=== PATIENT | female | born 1940 | race Caucasian/White ===

== ENCOUNTER → 2016-05-26 | Day surgery (SDC) | payer OTHER ==
[~2016-05-26] MED LIST: AMBIEN PO; AMLODIPINE BESYL5 MG PO; ASPIRIN81 M1 PO; ASPIRIN81 M2 PO; BISOPROLOL-HCT1 EAC1 PO; CALCIUM 600 + D1 TAB PO; CRANBERRY TABL1 EACH PO; CRANBERRY400 M1 PO; DAILY VALUE1 EACH PO; FISH OIL 1,0001 CA2 PO; FISH OIL 1,001000 MG PO; FLEXERIL10 MG PO; FOSAMAX70 MG; HYDROCHLOROTHIA25 MG PO; KLONOPIN1 MG PO; KLOR-CON SPRIN10 MEQ; LEXAPRO PO; LEXAPRO20 MG PO; LOTREL 10-20 MG1 CAP PO; MAGNESIUM200 MG PO; MOBIC15 MG PO; MOTRIN600 MG PO; MULTI VITAMIN1 EACH PO; OXYCODONE HCL5 MG PO; PREMPRO 0.1 TAB 0.62 PO; PREMPRO 0.625-21 TAB PO; PRILOSEC40 MG PO; VITAMIN C500 M1 PO; VITAMIN D1000 UNI1 PO; VOLTAREN75 MG PO; ZESTRIL10 M1 PO
--- NOTE | ~2016-05-26 | OR ---
Unit #: [id number] #: [id number] Patient: SHERRIE PATINO [id number] [address] [address] [id number] O MR#: [id number] NAME: SHERRIE PATINO ROOM: Date of Procedure: 05/26/2016 Admission Date: 05/26/2016 Surgeon: Yakov Evans M.D. : 1940 Attending Physician: Yakov Evans M.D. Primary Care Physician: Akash Heart M.D. SURGERY CENTER OPERATIVE NOTE PROCEDURES PERFORMED Lumbar epidural steroid injection under x-ray guided needle placement with provider administered conscious sedation. PREOPERATIVE DIAGNOSES 1. Acute lumbar radiculitis. 2. Chronic lumbar radicular pain. 3. Spinal stenosis, lumbosacral spine. 4. Herniated disk, L5-S1. 5. Herniated disk, L2-3. 6. Degenerative joint disease, lumbosacral spine. 7. Degenerative disk disease, lumbosacral spine. 8. Facet arthrosis, lumbosacral spine. 9. Facet arthralgia, lumbosacral spine. INDICATIONS FOR PROCEDURE The patient presents today with a longstanding history of chronic lumbar radicular as well as lumbar facet arthralgia pain secondary to her underlying degenerative processes. She is generally fairly well treated medically, but does occasionally experience exacerbations, which to date have only responded to interventional pain management procedures. However, during today's discussion, she described an exacerbation which has failed her usual ongoing conservative measures. She states she is getting less relief from interventional pain management procedures. Therefore, we discussed referral to surgeon. Since she states she has already seen Dr. Aniket Murphy and while does not prefer surgery, he understands it might be necessary. We also discussed the potential for referring for medical pain management. However, she states she is comfortably being medically managed by her current primary care provider, Dr. Ford Heart. Following these discussions as well as discussion of risks and benefits of proceeding today with lumbar approach epidural steroid injection utilizing dual needle technique, the patient agreed this would be the appropriate course of action. She is scheduled for long-term followup in this clinic on September 01. DESCRIPTION OF PROCEDURE Ms. Patino was then taken to the operating room, where she was prepped and draped in sterile manner. Standard monitors were applied. She was sedated with 2 mg of IV Versed initially and required additional 2 mg of IV Versed throughout the duration of procedure. Lumbar epidural space accessed at the L5-S1 and the L2-L3 levels using loss of resistance technique and x-ray guidance. Needle placement was confirmed with injection of 2 mL of Omnipaque at each level. There was good inferior and Unit #: [id number] #: [id number] Patient: SHERRIE PATINO superior flow at each level injected. Following this needle placement with a total x-ray time of 9 seconds, the patient received an injectate containing 4 mL of normal saline, and 40 mg of methylprednisolone at each level for a total injected volume of 8 mL of normal saline, and 80 mg of methylprednisolone. She tolerated this procedure well. She was discharged home with followup instructions, which include return date as described above. Dictated by... Jeb Ding/donn TD: 05/27/2016 02:34 JOB #: [id number] SURGERY CENTER OPERATIVE NOTE X Maxwell Evans MD PROCEDURE OPERATIVE NOTE
== END | disposition home or self-care (01) ==
LOC: CCSC 08:14
DX: G89.29 Other chronic pain (principal); M51.16 Intervertebral disc disorders with radiculopathy, lumbar region; M51.17 Intervertebral disc disorders with radiculopathy, lumbosacral region; M48.06 Spinal stenosis, lumbar region; M19.90 Unspecified osteoarthritis, unspecified site; Z90.49 Acquired absence of other specified parts of digestive tract; Z85.038 Personal history of other malignant neoplasm of large intestine; Z98.41 Cataract extraction status, right eye; Z98.42 Cataract extraction status, left eye; Z98.890 Other specified postprocedural states; Z88.1 Allergy status to other antibiotic agents; Z88.8 Allergy status to other drugs, medicaments and biological substances
CPT/HCPCS: J1040; J2250

== ENCOUNTER → 2016-09-09 | Day surgery (SDC) | payer OTHER ==
--- NOTE | ~2016-09-09 | OR ---
Unit #: [id number] #: [id number] Patient: SHERRIE FUNK [id number] [address] [place], [place] [address] [id number] O MR#: [id number] NAME: SHERRIE FUNK ROOM: Date of Procedure: 09/09/2016 Admission Date: 09/09/2016 Surgeon: Warner Singh M.D. : 1940 Attending Physician: Warner Singh M.D. Primary Care Physician: Akash Heart M.D. OPERATIVE REPORT PREOPERATIVE DIAGNOSES Back pain, degenerative disk disease, lumbar facet disease. POSTOPERATIVE DIAGNOSES Back pain, degenerative disk disease, lumbar facet disease. PROCEDURE PERFORMED Lumbar facet injection x2 levels with intravenous sedation and fluoroscopic guidance for needle localization. INDICATIONS FOR PROCEDURE The patient is a 76-year-old female with worsening back pain, which is not settle with conservative treatment. Several years ago, she had similar symptoms, did very well with epidural steroids. She had resurgence of the pain and not settled with epidurals. Workup did demonstrate significant facet disease worse at L4-L5 and L5-S1, moderate at L2-L3 and L3-L4. Plan is for trial of diagnostic and therapeutic facet injections at the lower two levels, we may consider injections L2-3 and L3-L4. DESCRIPTION OF PROCEDURE The patient was placed in a prone position. Standard monitors were applied. 4 mg of Versed were given for sedation and anxiolysis, which were adequate. Vital signs remained stable. Sterile prep and drape then of the lumbosacral area was performed. Fluoroscopy used to identify the location of facet joints. The skin then overlying the left L5-S1 and L4-L5 facet joints localized with 1% lidocaine. At each of these levels, a 22-gauge Quincke point spinal needle was advanced with fluoroscopic guidance to bring the needle tip to within the edge of the respective L4-L5 and L5-S1 facet joints. After confirming this, a dose of 1 mL of a mixture of 80 mg of Depo-Medrol and 3 mL of 0.25% bupivacaine were deposited at each joint, approximately 0.5 mL within the joint and 0.5 mL just outside the joint. The needles were flushed and removed. The exact same procedure was then repeated on the right at the L4-L5 and L5-S1 facet joints. Again after confirming proper positioning with fluoroscopic guidance, the same dose of 1 mL of a mixture of 80 mg Depo-Medrol and 3 mL of 0.25% bupivacaine were deposited. These were all flushed and removed. The patient tolerated the procedure well and was discharged to the recovery room in stable condition. Dictated by... Unit #: [id number] #: [id number] Patient: SHERRIE FUNK M.D. LHP/donn TD: 09/09/2016 23:19 JOB #: [id number] OPERATIVE REPORT Page 1 of 1 X Warner Singh MD X PROCEDURE OPERATIVE NOTE
== END | disposition home or self-care (01) ==
LOC: CCSC 07:45
DX: M47.26 Other spondylosis with radiculopathy, lumbar region (principal); M51.16 Intervertebral disc disorders with radiculopathy, lumbar region; M53.87 Other specified dorsopathies, lumbosacral region; M53.86 Other specified dorsopathies, lumbar region; J44.9 Chronic obstructive pulmonary disease, unspecified; I73.9 Peripheral vascular disease, unspecified; Z85.038 Personal history of other malignant neoplasm of large intestine
CPT/HCPCS: J1040; J2250

== ENCOUNTER → 2016-10-26 | Day surgery (SDC) | payer OTHER ==
--- NOTE | ~2016-10-26 | OR ---
Unit #: [id number] #: [id number] Patient: SHERRIE FUNK [id number] [address] [place], [place] [address] [id number] O MR#: [id number] NAME: SHERRIE FUNK ROOM: Date of Procedure: 10/26/2016 Admission Date: 10/26/2016 Surgeon: Warner Singh M.D. : 1940 Attending Physician: Warner Singh M.D. Primary Care Physician: Akash Heart M.D. OPERATIVE REPORT PREOPERATIVE DIAGNOSES Degenerative facet disease, back pain. POSTOPERATIVE DIAGNOSES Degenerative facet disease, back pain. PROCEDURE PERFORMED Lumbar facet injection x2 levels with intravenous sedation and fluoroscopic guidance for needle localization. INDICATIONS FOR PROCEDURE The patient is a 76-year-old female with chronic back and intermittent left lower extremity pain. She has been treated multiple years with epidural steroid injections and lost efficacy over time. Workup demonstrated she had significant facet disease at L2-L3 through L5-S1 most significant at the L4-L5 level. After failing control of this component of lower back pain with conservative measures, the decision was made to give a trial of facet injections, initially it was done at L4-L5 and L5-S1 bilaterally 6 weeks ago. She has maintained 50% improvement with facet injections done at that level. She has some pain in the mid to upper lumbar area. The plan is to trial injection today at the L2-L3 and L3-L4 levels. DESCRIPTION OF PROCEDURE The patient was placed in a prone position. Standard monitors were applied. 4 mg of Versed were given for sedation and anxiolysis, which were adequate. Vital signs remained stable. Sterile prep and drape then of the lumbar area was performed. The skin then at overlying the left L3-L4 and L2-L3 facets were localized with 1% lidocaine at each these levels. A 22-gauge Quincke point spinal needle was advanced using biplanar fluoroscopic guidance after confirming proper needle tip positioning with fluoroscopy. A dose of 1 mL of a mixture of 80 mg of Depo-Medrol and 3 mL of 0.25% bupivacaine was used. The needles were flushed and removed. The exact same procedure was then repeated on the right at the L2-L3 and L3-L4 levels. The patient tolerated the exact procedure well and was discharged to the recovery room in stable condition. Dictated by... Wraner Singh M.D. Unit #: [id number] #: [id number] Patient: SHERRIE FUNK HARJIT/donn TD: 10/26/2016 11:17 JOB #: [id number] OPERATIVE REPORT Page 1 of 1 X Warner Singh MD X PROCEDURE OPERATIVE NOTE
== END | disposition home or self-care (01) ==
LOC: CCSC 08:41
DX: G89.29 Other chronic pain (principal); M47.26 Other spondylosis with radiculopathy, lumbar region; M53.86 Other specified dorsopathies, lumbar region; M53.87 Other specified dorsopathies, lumbosacral region; J44.9 Chronic obstructive pulmonary disease, unspecified; Z85.038 Personal history of other malignant neoplasm of large intestine; Z88.1 Allergy status to other antibiotic agents; Z88.8 Allergy status to other drugs, medicaments and biological substances; Z79.82 Long term (current) use of aspirin; Z79.891 Long term (current) use of opiate analgesic; Z79.899 Other long term (current) drug therapy
CPT/HCPCS: J1040; J2250